=== PATIENT | female | born 1935 | race Caucasian/White ===

== ENCOUNTER → 2016-07-26 | Outpatient (CLI) | payer MEDICARE ==
[~2016-07-26] MED LIST: ACIPHEX20 MG PO; ASTELIN137 MCG INH; CALCIPOTRIENE60 G1 TP; CELEBREX PO; CETIRIZINE HCL10 MG PO; CIPRO PO; CLARINEX5 MG PO; CLOBETASOL 0.0560 GM TOP; CLOBETASOL E 0.60 GM TOP; COZAAR PO; DOVONEX120 GM TOP; ELESTAT OU; FLUTICASONE PRO16 GM NS; LEVSIN PO; LEVSIN0.125 M1 PO; LOSARTAN POTASS50 MG PO; MEDI-MECLIZINE25 M1 PO; OMEPRAZOLE20 M2 PO; PATADAY2.5 ML OP; TYLOX 5/500 CAP1 CAP PO; ZOFRAN PO
--- NOTE | ~2016-07-26 | ST ---
Unit #: [id number] #: [id number] Patient: AMIRAH FARR [id number] [address] [place], [place] [address] [id number] O MR#: [id number] NAME: AMIRAH FARR : 1935 SEX: F STUDY DATE/TIME: 07/26/2016 UNIT: [facility] ROOM: STUDY DESCRIPTION: Stress Test Attending Physician: Quentin Fernandez M.D. Primary Care Physician: No Primary Care Physician CARDIOLOGY REPORT EXAM Walking Lexiscan Cardiolite REASON FOR EXAM Chest pain. DESCRIPTION Baseline EKG shows sinus rhythm, 82 beats per minute. Isolated PVC. The patient was injected with 0.4 mg of Lexiscan per protocol followed by Cardiolite and walked on the treadmill per protocol. During the infusion, she denied any complaints of chest pain. However, she did complain of shortness of breath, fatigue, as well as left knee pain. During the infusion, the patient did get extremely tachycardic with a heart rate up to 151 beats per minute. This was short in duration and she was asymptomatic. It was sinus tachycardia. The patient, however, was noted to have still slightly elevated heart rate even at the end of the infusion, rates running the in 110s to 120s. There were no ST or T wave changes noted during the test. There was an isolated PVC in the recovery period but no sustained or nonsustained arrhythmias during the testing. The test was stopped secondary to protocol completion. CONCLUSION 1. Negative EKG portion of walking Lexiscan Cardiolite. 2. No ST or T wave changes suggestive of ischemia. 3. The patient did complain of shortness of air and fatigue as well as left knee pain during the infusion. However, she denied any complaints of chest pain. 4. The patient did experience sinus tachycardia during the infusion with rates as high as 140s to 150s. Her heart rate did remain elevated in the recovery period in the 110s. She was asymptomatic. I have discussed this with Dr. Fernandez and reviewed the patient's medications with him. He suggested adding atenolol 25 mg p.o. daily. The patient has been given a prescription for this mediation and informed on how to take and possible side effects. 5. Please correlate with nuclear imaging. Unit #: [id number] #: [id number] Patient: AMIRAH FARR Dictated by... Erma Beltrán A.P.R.N. for David Ma/adama TD: 07/26/2016 12:44 JOB #: [id number] CARDIOLOGY REPORT X Erma Beltrán APRN CARDIOLOGY REPORT
--- NOTE | ~2016-07-26 | TH ---
Unit #: [id number] #: [id number] Patient: AMIRAH FARR [id number] [address] [place], [place] [address] [id number] O MR#: [id number] NAME: AMIRAH FARR : 1935 SEX: F STUDY DATE/TIME: 07/26/2016 UNIT: [facility] ROOM: STUDY DESCRIPTION: LEXISCAN CARDIOLITE STRESS BYRON Attending Physician: Quentin Fernandez M.D. Primary Care Physician: Primary Care Physician No CARDIOLOGY REPORT EXAM Lexiscan Cardiolite stress test, nuclear portion PROCEDURE Using technetium-99m labeled Cardiolite rest and stress SPECT images were obtained. Multiple SPECT images were obtained in various views including horizontal and vertical long axis, and short axis views of the left ventricle. Images were obtained by gated SPECT method. Patient was administered 10.15 mCi of Cardiolite at rest. The patient was administered 31.5 mCi of Cardiolite after Lexiscan infusion was completed. On the stress images, there is normal perfusion noted. The rest images show normal perfusion. Comparing rest and stress images, there is no stress-induced ischemia noted. The left ventricular ejection fraction is calculated to be 84%. There is no focal wall motion abnormality seen. CONCLUSION 1. No stress-induced ischemia noted. 2. Left ventricular ejection fraction is calculated to be 84%. 3. No focal wall motion abnormality seen. 4. Left ventricle size is small. 5. Normal nuclear portion of the stress test. Dictated by... David Durant TD: 07/26/2016 15:41 JOB #: [id number] CARDIOLOGY REPORT X Myrna Gray MD CARDIOLOGY REPORT
== END | disposition home or self-care (01) ==
LOC: CNUC 08:09
DX: R07.9 Chest pain, unspecified (principal); R53.83 Other fatigue; I10 Essential (primary) hypertension
CPT/HCPCS: 78452; 93017; A9500; J2785

== ENCOUNTER → 2017-01-23 | Outpatient (CLI) | payer MEDICARE ==
--- NOTE | ~2017-01-23 | MR32 ---
[facility] A Service of [facility] & [facility] RADIOLOGY TEXT RESULTS PATIENT: SCOTT FARR LOCATION: [facility] : 37 UNIT #: [id number] AGE: [address]: Bassem Quinteros MD SEX: F ORDER DR: [id number] [facility] [address] [facility]. [place], [place] [address] [id number] O MR#: [id number] Acc #: [id number] NAME: SCOTT FARR : 1935 SEX: F STUDY DATE/TIME: 01/23/2017 10:03 UNIT: [facility] ROOM: STUDY DESCRIPTION: MR Cervical Wo Contrast Attending Physician: Bassem Quinteros M.D. Referring Physician: Bassem Quinteros M.D. Ordering Physician: Bassem Quinteros M.D. Primary Care Physician: Bassem Quinteros M.D. MRI CENTER REPORT This report is preliminary unless electronic signature is present. EXAM Cervical spine MRI without. HISTORY 81-year-old female with neck pain for 1 month. Pain is mostly on the right. Patient had a fall in July and hit the right-sided for her face. TECHNIQUE MRI of the cervical spine was performed without contrast using routine 1.5T imaging technique. COMPARISON There is a plain film series for comparison from 01/11/2017. FINDINGS There is 3-4 mm degenerative anterolisthesis of C3 on C4 and about 2 mm of degenerative anterolisthesis of C6 on C7 and C7 on T1. Cervical intervertebral discs are desiccated. There is endplate spondylosis, most prominent at C4-5 and C5-6. The cervical cord is normal in size and there is no reproducible focus of cord signal abnormality. There is no Chiari-I malformation. Incidental note made of a partially empty sella. There are some marrow endplate degenerative changes and there is particular marrow edema either side of the right side C2-3 facet joint. This suggests a component of active inflammation in the setting of facet arthritis and please correlate further clinically. This is a possible source of right-sided neck pain. At C2-3, facet arthritis as discussed above. No canal stenosis. Probably mild left and more moderate right-sided foraminal narrowing. There is mild left-side facet degenerative change. At C3-4, facet arthritis is moderate on the left and gkpyurdc-xk-meqsuw on the right and this accounts for the anterolisthesis of C3 on C4. There is STS. [facility] A Service of [facility] & [facility] RADIOLOGY TEXT RESULTS PATIENT: SCOTT FARR [facility] UNIT #: [id number] AGE: [address]: Bassem Quinteros MD SEX: F ORDER DR: a concentric mild desiccated disc bulge and minor endplate spondylosis. Uncovertebral osteophyte formation is worse to the right than the left. There is mild effacement of the thecal sac but the cord is still surrounded by CSF. There is fairly severe bilateral foraminal impingement. At C4-5, there is mild concentric desiccated disc osteophyte complex with uncovertebral osteophyte formation bilaterally and mild bilateral facet degenerative change. There is very mild canal stenosis. Uncovertebral osteophyte formation is noted bilaterally and there is severe left and more mttlwtec-me-cclzcw right-side foraminal narrowing. At C5-6, concentric desiccated disc osteophyte complex with mild bilateral facet degenerative change and uncovertebral osteophyte formation bilaterally. There is very mild canal stenosis and fairly severe foraminal impingement, left greater than right. At C6-7, there is a mild concentric disc bulge with a superimposed small extrusion posteriorly extending cephalad from the disc and remaining contiguous with it. It is more prominent to the left than the right of midline. There is mild effacement the anterior thecal sac but no canal stenosis. There is mild left-side foraminal narrowing. At C7-T1, there is moderate facet degenerative change bilaterally with minimal anterolisthesis of C7 on T1 and minor disc bulging but there is no canal stenosis. There is no significant foraminal impingement. IMPRESSION 1. 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 This would be consistent with a component of relatively acute/active inflammation or less likely infection at the C2-3 facet joint. This is a possible source of pain and please correlate further clinically. 2. There is multiple level cervical degenerative disease with very mild canal stenosis as noted above. Multiple level severe foraminal compromise. See azeni-gm-clfea discussion and correlate with any radicular symptoms. Dictated by... Nisha Rodgers M.D. THIS IS AN ELECTRONICALLY VERIFIED REPORT Nisha Rodgers M.D. at 01/23/2017 5:33 PM SAC/tmw TD: 01/23/2017 17:01 JOB #: [id number] [facility]. [facility] A Service of [facility] RADIOLOGY TEXT RESULTS PATIENT: CSOTT FARR DRURY [facility] 36 UNIT #: [id number] AGE: [address]: Bassem Quinteros MD SEX: F ORDER DR: MRI CENTER REPORT Page 1 of 1 COPY
== END | disposition home or self-care (01) ==
LOC: CMRI 09:24
DX: M43.12 Spondylolisthesis, cervical region (principal); M46.92 Unspecified inflammatory spondylopathy, cervical region; M47.892 Other spondylosis, cervical region; M50.223 Other cervical disc displacement at C6-C7 level; M99.81 Other biomechanical lesions of cervical region; M48.02 Spinal stenosis, cervical region
CPT/HCPCS: 72141